=== PATIENT | female | born 1985 | race Caucasian/White ===

== ENCOUNTER 2023-07-14 14:27 | Emergency (ER) | payer OTHER, SELFPAY ==
--- NOTE | ~2023-07-14 | XR_ITS ---
EXAMINATION: XR chest 2V DATE: 07/14/2023 17:16 INDICATION: Cough. Upper respiratory tract infection. TECHNIQUE: PA and lateral views of the chest were obtained. COMPARISON: None FINDINGS: The lungs are clear with no focal airspace opacities, pulmonary edema, pleural effusion or pneumothor ax. The cardiomediastinal silhouette is normal. Visualized bones and soft tissues are unremarkable. IMPRESSION: 1. No acute cardiopulmonary disease. Reviewed, dictated and finalized at location A. IFIER
[2023-07-14 14:36] VITALS: BP 123/79; PULSE 89; RESP 18; TEMP 36.6; O2SAT 97
[2023-07-14 15:34] LABS: Eosinophils Absolute Auto 0.1 K/mm3 (0-0.3); Eosinophils Percent Auto 1.6 % (0-4.4); Hematocrit 41.1 % (37.0-47.0); Hemoglobin 13.8 g/dL (12.0-15.0); Immature Granulocyte Absolute 0.01 K/mm3 (0.00-0.031); Immature Granulocyte Percent A 0.1 % (0-0.5); Lymphocytes Absolute Auto 3.01 K/mm3 (0.9-3.2); Lymphocytes Percent Auto 39.6 % (18.3-44.2); Mean Corpuscular HGB Conc 33.6 g/dl (32-36); Mean Corpuscular Hemoglobin 30.7 pg (26-34); Mean Corpuscular Volume 91.5 fl (80-100); Mean Platelet Volume 10.4 fl (7.4-10.4); Monocytes Absolute Auto 0.8 K/mm3 (0.1-0.6); Neutrophils Absolute Auto 3.7 K/mm3 (1.3-6.7); Neutrophils Percent Auto 48.7 % (45.5-73.1); Platelet Count Result 203 k/mm3 (150-375); Red Blood Count 4.49 M/mm3 (4.2-5.4); Red Cell Distribution Width 12.6 % (11.5-14.5); White Blood Count 7.6 K/mm3 (4.5-10.0)
[2023-07-14 15:36] LABS: Appearance Urine Clear (Clear); Bilirubin Urine Negative (Negative); Blood Urine Negative (Negative); Color Urine Yellow (Yellow); Glucose Urine UA Negative (Negative); Ketones Urine Negative (Negative); Leukocyte Esterase Ur Negative LEU/UL (Negative); Nitrate Urine Negative (Negative); Protein Urine Negative (Negative); Specific Grav Ur 1.025 (1.001-1.035); Urobilinogen Urine 0.2 mg/dL (<2.0); pH Urine 6.5 (5.0-9.0)
[2023-07-14 15:41] LABS: Add Urine Microscopic? NO
[2023-07-14 15:43] LABS: Alanine Aminotransferase 20 U/L (6-35); Albumin Level 4.1 g/dL (3.5-5.1); Alkaline Phosphatase 59 U/L (38-126); Anion Gap 6 mmol/L (8-16); Aspartate Amino Transferase 27 U/L (14-36); Bilirubin,Total 0.6 mg/dL (0.2-1.3); Blood Urea Nitrogen 11 mg/dL (7-17); Calcium 9.2 mg/dL (8.4-10.2); Carbon Dioxide 27 mmol/L (22-30); Chloride 105 mmol/L (98-107); Estimated CRCL calculation 71 ml/min; Estimated Glomerular Filt Rate > 60; Glucose 89 mg/dL (65-110); Lipase 121 U/L (23-300); Potassium 3.9 mmol/L (3.4-5.0); Sodium 138 mmol/L (137-145)
[2023-07-14 16:05] LABS: Influenza A QL RT-PCR Negative (Negative); Influenza B QL RT-PCR Negative (Negative); RSV RNA, RT-PCR Negative (Negative); SARS-CoV-2 RNA PCR Negative (Negative)
--- NOTE | 2023-07-14 16:40 | ED.NAVMDI ---
HPI - Nausea/Vomiting/Diarrhea General Chief complaint: Nausea/Vomiting/Diarrhea Stated complaint: n/v/d Time Seen by Provider: 07/14/23 15:29 History of Present Illness HPI Narrative: 37-year-old female reports to the emergency department for symptoms of a viral syndrome x2 days. 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 She is reporting nausea, vomiting, diarrhea, diffuse abdominal discomfort, dry cough and headache. Reports a fever of 101 at the onset of symptoms which is since resolved. Denies chest pain or shortness of breath, dysuria or hematuria, vision changes or focal numbness or weakness. Review of Systems Review of Systems: CONSTITUTIONAL: Denies fever, chills, or sweats. EYES: Denies visual changes, redness, or discharge. ENT: See HPI CARDIOVASCULAR: Denies chest pain, palpitations, or edema. RESPIRATORY: See HPI GASTROINTESTINAL: See HPI GENITOURINARY: Denies dysuria or hematuria. SKIN: Denies rash or itching. MUSCULOSKELETAL: Denies back pain, joint pain, or myalgia. NEUROLOGIC: Denies headache, numbness, or weakness. PSYCHIATRIC: Denies anxiety or depression. Exam Narrative: GENERAL: Well-appearing, well-nourished, and in no acute distress. HEAD: Normocephalic, atraumatic. EYES: PERRLA and EOMI. ENT: Nares clear, no rhinorrhea or epistaxis. Mucous membranes moist. NECK: Supple. CHEST: Clear to auscultation. No respiratory distress. HEART: Regular rate and rhythm. No murmur heard. Normal peripheral pulses. ABDOMEN: Soft, nontender, nondistended, normal active bowel sounds. No guarding, rebound or rigidity. No CVA tenderness. EXTREMITIES: Normal range of motion. No edema. SKIN: Warm, dry, no rash. NEURO: No focal deficits. Alert and oriented x3 Course Vital Signs Vital signs: Vital Signs Temperature 97.9 F 07/14/23 14:36 Pulse Rate 89 07/14/23 14:36 Respiratory Rate 18 07/14/23 14:36 Blood Pressure 123/79 07/14/23 14:36 Pulse Oximetry 97 07/14/23 14:36 Temperature 97.9 F 07/14/23 14:36 Pulse Rate 89 07/14/23 14:36 Respiratory Rate 18 07/14/23 14:36 Blood Pressure 123/79 07/14/23 14:36 Pulse Oximetry 97 07/14/23 14:36 MDM - Nausea/Vomiting/Diarrhea MDM Narrative Medical decision making narrative: 37-year-old female reports for evaluation for nausea, vomiting, diarrhea, abdominal discomfort, headache and cough x2 days. See HPI for further history. Triage vitals are stable and she is afebrile. She is nontoxic on exam. CBC is without leukocytosis or bandemia. Chemistries are unremarkable. Lipase normal. UA unremarkable. COVID, flu RSV are negative. negative. Chest x-ray shows no acute cardiopulmonary disease. Labs and imaging discussed with the patient. Shared decision making regarding obtaining a abdomen pelvis CT. Patient declined states she like to treat conservatively which I agree given abdomen is soft and nontender, symptoms consistent with viral syndrome. Patient received a headache cocktail with resolution of headache and improvement in symptoms. Will discharge her home with Zofran, encourage increased fluid intake and close follow-up with her PCP. Strict ED return precautions discussed. She is agreeable with the plan and verbalized understanding. Discharged in stable condition. Lab Data 07/14/23 15:16 07/14/23 15:16 Labs: Lab Results 07/14/23 Range/Units 15:16 WBC 7.6 (4.5-10.0) K/mm3 RBC 4.49 (4.2-5.4) M/mm3 Hgb 13.8 (12.0-15.0) g/dL Hct 41.1 (37.0-47.0) % MCV 91.5 (80-100) fl MCH 30.7 (26-34) pg MCHC 33.6 (32-36) g/dl RDW 12.6 (11.5-14.5) % Plt Count 203 (150-375) k/mm3 MPV 10.4 (7.4-10.4) fl Immature Gran % (Auto) 0.1 (0-0.5) % Neut % (Auto) 48.7 (45.5-73.1) % Lymph % (Auto) 39.6 (18.3-44.2) % [place] % (Auto) 10.0 H (2.6-8.5) % Eos % (Auto) 1.6 (0-4.4) % Baso % (Auto) 0.0
[2023-07-14] MEDS: diphenhydrAMINE HCl INJ 50 MG/ML VIAL 25 MG IV PUSH (17:03)
[2023-07-14] MEDS: PROCHLORPERAZINE EDISYLATE 10 MG/2 ML VIAL IV PUSH (17:06)
[2023-07-14] MEDS: ACETAMINOPHEN 500 MG TABLET 1000 MG PO (17:06)
[2023-07-14 17:40] VITALS: BP 129/89; PULSE 70; RESP 16; O2SAT 98
== END 2023-07-14 17:40 | disposition home or self-care (01) ==
PROVIDERS: Emergency Medicine; Emergency Provider Physician Assistant; PCP Family Medicine
DX: B34.9 Viral infection, unspecified (principal); Z20.822 Contact with and (suspected) exposure to COVID-19
CPT/HCPCS: 36415; 71046; 80053; 81003; 81025; 83690; 85025; 87637; 96374; 96375; 99284; A9270; J0780; J1200

== ENCOUNTER 2024-02-10 12:32 | Emergency (ER) | payer OTHER, SELFPAY ==
--- NOTE | ~2024-02-10 | XR_ITS ---
EXAMINATION: XR chest 2V DATE: 02/10/2024 13:49 INDICATION: Cough TECHNIQUE: PA and lateral views of the chest were obtained. COMPARISON: Chest radiograph dated 07/14/2023 FINDINGS: The lungs remain clear with no focal airspace opacities, pulmonary edema, pleural effusion or pneumot horax. The cardiomediastinal silhouette is normal. Visualized bones and soft tissues are unremarkable . IMPRESSION: 1. No acute cardiopulmonary disease. Reviewed, dictated and finalized at location B.
[2024-02-10 12:35] VITALS: BP 130/81; PULSE 100; RESP 18; TEMP 36.7; O2SAT 99
[2024-02-10 13:01] VITALS: O2SAT 98
[2024-02-10 13:24] LABS: Strep Group A RT-PCR NOT DETECTED (Negative)
[2024-02-10 13:35] LABS: Influenza A QL RT-PCR Negative (Negative); Influenza B QL RT-PCR Negative (Negative); RSV RNA, RT-PCR Negative (Negative); SARS-CoV-2 RNA PCR Negative (Negative)
--- NOTE | 2024-02-10 14:08 | ED.URI ---
HPI - URI/Sore Throat General Chief Complaint: Upper Respiratory Infection Stated Complaint: sore throat, coughing Time Seen by Provider: 02/10/24 13:09 History of Present Illness HPI Narrative: 38-year-old female presenting with URI symptoms. States she has had nasal congestion, sinus pressure, cough, sore throat for the last several days. Her children and boyfriend have similar symptoms. She was unable to go to work yesterday. She thinks she has the flu. No further complaints. Related Data Home Medications Medication Instructions Recorded Confirmed alprazolam 1 mg tablet mg 07/14/23 escitalopram oxalate 10 mg tablet mg 07/14/23 sumatriptan succinate 100 mg tablet mg PO 07/14/23 07/14/23 Review of Systems Review of Systems: All systems reviewed & are unremarkable except as noted in HPI and below Exam Narrative: GENERAL: Nontoxic, no acute distress, pleasant cooperative HEAD: Normocephalic, atraumatic. EYES: PERRLA and EOMI. ENT: + nasal congestion. Mucous membranes moist. NECK: Supple. CHEST: Clear to auscultation. No respiratory distress. HEART: Regular rate and rhythm EXTREMITIES: Normal range of motion SKIN: Warm, dry, no rash. NEURO: Alert and oriented x3. PSYCH: Normal mood and affect. Course Vital Signs Vital signs: Vital Signs Temperature 98.0 F 02/10/24 12:35 Pulse Rate 100 02/10/24 12:35 Respiratory Rate 18 02/10/24 12:35 Blood Pressure 130/81 02/10/24 12:35 Pulse Oximetry 99 02/10/24 12:35 Oxygen Delivery Room Air 02/10/24 12:35 Temperature 98.3 F 02/10/24 14:16 Pulse Rate 95 02/10/24 14:16 Respiratory Rate 18 02/10/24 14:16 Blood Pressure 120/85 02/10/24 14:16 Pulse Oximetry 98 02/10/24 14:16 Oxygen Delivery Room Air 02/10/24 13:01 MDM - URI/Sore Throat MDM Narrative Medical decision making narrative: 38-year-old female presenting with URI symptoms. Vitals within normal limits. Exam remarkable for the above. Patient is negative for influenza, RSV, COVID, strep. Chest x-ray without acute abnormalities. She is safe for outpatient management. Discussed appropriate supportive care. Discharged in stable condition. Differential Diagnosis Differential diagnosis: Likely upper respiratory infection, viral infection and influenza Medical Records Attestation: I reviewed the patient's medical records. Lab Data Attestation: I reviewed the patient's lab results. Labs: Lab Results 02/10/24 Range/Units 12:50 Influenza A (RT-PCR) Negative (Negative) Influenza B (RT-PCR) Negative (Negative) RSV (RT-PCR) Negative (Negative) SARS-CoV-2 RNA (RT-PCR) Negative (Negative) Group A Strep (PCR) Not detected (Negative) Imaging Data Radiologist's impression: ITS Impressions Chest X-Ray 02/10/24 13:58 IMPRESSION: 1. No acute cardiopulmonary disease. Critical Care Time Critical Care Time Critical Care Time: No Discharge Plan Discharge Clinical Impression: Upper respiratory infection Patient Disposition: Home, Self-Care Condition: Stable Instructions: Antibiotic Form, Upper Respiratory Infection (ED) Additional Instructions: If your symptoms worsen or other concerning symptoms arise, please return to the ER. Prescriptions: No Action ondansetron 4 mg tablet,disintegrating 4 mg PO Q8H Qty: 14 0RF alprazolam 1 mg tablet sumatriptan succinate 100 mg tablet PO escitalopram oxalate 10 mg tablet Follow-up/Referrals: Juarez,Clotilde Babcock MD [Primary Care Provider] - Stand Alone Forms: Work/School Release IP
[2024-02-10 14:16] VITALS: BP 120/85; PULSE 95; RESP 18; TEMP 36.8; O2SAT 98
== END 2024-02-10 14:17 | disposition home or self-care (01) ==
PROVIDERS: Emergency Medicine; Emergency Provider Emergency Medicine; PCP Family Medicine
DX: J06.9 Acute upper respiratory infection, unspecified (principal); Z20.822 Contact with and (suspected) exposure to COVID-19
CPT/HCPCS: 71046; 87637; 87651; 99283

== ENCOUNTER 2024-02-15 16:48 | Emergency (ER) | payer OTHER, SELFPAY ==
[2024-02-15] VITALS (23 sets, daily range): BP systolic 106–126; BP diastolic 72–85; PULSE 83–99; RESP 15–24; TEMP 36.7; O2SAT 96–100
--- NOTE | ~2024-02-15 | XR_ITS ---
EXAMINATION: XR chest 2V Exam Date/Time: 02/15/2024 17:50 CDT HISTORY: sob and cough Comparison: 02/10/2024. RESULT: Lines, tubes, and devices: None. Lungs and pleura: Clear. Cardiomediastinal silhouette: Stable. Other: No acute osseous or upper abdominal finding. IMPRESSION: No acute cardiopulmonary process. Reviewed, dictated and finalized at location K.
--- NOTE | 2024-02-15 17:22 | ECG_ITS ---
Test Date: 2024-02-15 17:45:31 Measurements Intervals [place] Rate: 82 P: 52 IN: 119 QRS: 79 QRSD: 88 T: 73 QT: 367 QTc: 431 Interpretive Statements SINUS RHYTHM WITH SHORT IN INTERVAL NORMAL ECG No previous ECG available for comparison Electronically Signed On 02-15-2024 20:24:13 CDT by David Salas D.O.
[2024-02-15 17:48] LABS: Basophils Percent Auto 0.1 % (0.2-1.2); Eosinophils Absolute Auto 0.1 K/mm3 (0-0.3); Eosinophils Percent Auto 1.5 % (0-4.4); Hematocrit 39.3 % (37.0-47.0); Hemoglobin 13.7 g/dL (12.0-15.0); Immature Granulocyte Absolute 0.02 K/mm3 (0.00-0.031); Immature Granulocyte Percent A 0.2 % (0-0.5); Lymphocytes Absolute Auto 3.88 K/mm3 (0.9-3.2); Lymphocytes Percent Auto 43.8 % (18.3-44.2); Mean Corpuscular HGB Conc 34.9 g/dl (32-36); Mean Corpuscular Hemoglobin 31.9 pg (26-34); Mean Corpuscular Volume 91.4 fl (80-100); Mean Platelet Volume 9.6 fl (7.4-10.4); Monocytes Absolute Auto 0.9 K/mm3 (0.1-0.6); Monocytes Percent Auto 10.5 % (2.6-8.5); Neutrophils Absolute Auto 3.9 K/mm3 (1.3-6.7); Neutrophils Percent Auto 43.9 % (45.5-73.1); Platelet Count Result 251 k/mm3 (150-375); Red Cell Distribution Width 12.6 % (11.5-14.5); White Blood Count 8.9 K/mm3 (4.5-10.0)
[2024-02-15 18:00] LABS: Alanine Aminotransferase 20 U/L (6-35); Albumin Level 4.1 g/dL (3.5-5.1); Alkaline Phosphatase 61 U/L (38-126); Anion Gap 7 mmol/L (4-12); Aspartate Amino Transferase 25 U/L (14-36); Bilirubin,Total 0.3 mg/dL (0.2-1.3); Blood Urea Nitrogen 9 mg/dL (7-17); Calcium 8.9 mg/dL (8.4-10.2); Carbon Dioxide 26 mmol/L (22-30); Chloride 104 mmol/L (98-107); Estimated CRCL calculation 103 ml/min; Estimated Glomerular Filt Rate > 60; Glucose 88 mg/dL (65-110); Sodium 137 mmol/L (137-145)
[2024-02-15 18:01] LABS: Partial Thromboplastin Time 26.8 Seconds (22.3-36.8); Prothrombin Time 13.9 Seconds (11.1-14.7)
--- NOTE | 2024-02-15 18:07 | ED.SOB ---
HPI - SOB/Dyspnea General Chief Complaint: Shortness of Breath/Dyspnea Stated Complaint: SOB, cough, vomiting, subjective fever Time Seen by Provider: 02/15/24 17:22 Source: patient Mode of arrival: ambulatory Limitations: no limitations History of Present Illness HPI Narrative: This is a 38-year-old female that presents to the emergency department for cold symptoms. Present over the last week. Reports she has now started to have shortness of breath and wheezing. She has been taking agct-pbu-lueqomd medications with little relief. Denies fevers. Related Data Home Medications Medication Instructions Recorded Confirmed alprazolam 1 mg tablet mg 07/14/23 escitalopram oxalate 10 mg tablet mg 07/14/23 sumatriptan succinate 100 mg tablet mg PO 07/14/23 07/14/23 Allergies Allergy/AdvReac Type Severity Reaction Status Date / Time iohexol Allergy Swelling Verified 02/15/24 18:46 [From contrast - CT, X-RAY] of Lip/Tongue/Throat Sulfa (Sulfonamide Allergy Swelling Verified 02/15/24 17:20 Antibiotics) of Lip/Tongue/Throat vancomycin Allergy Swelling Verified 02/15/24 17:20 of Lip/Tongue/Throat Review of Systems Review of Systems: CONSTITUTIONAL: Denies fever ENT: Reports rhinorrhea, congestion, sore throat RESPIRATORY: Reports cough and dyspnea. All systems reviewed & are unremarkable except as noted in HPI and below PMFSH Past Medical History Medical History (Updated 02/15/24 @ 20:44 by Tresa Jefferson PA-C) History of anxiety Social History Social History (Updated 02/15/24 @ 18:20 by Tresa Jefferson PA-C) Smoking status: Current every day smoker Exam Narrative: GENERAL: Well-appearing, well-nourished, and in no acute distress. HEAD: Normocephalic, atraumatic. EYES: EOMI. ENT: Nares clear, no rhinorrhea or epistaxis. Mucous membranes moist. Oropharynx without tonsillar hypertrophy exudate or other lesions. NECK: Supple. No adenopathy or masses. CHEST: No respiratory distress. Lung sounds are coarse with diffuse wheezing. No rales or rhonchi HEART: Regular rate and rhythm. No murmur heard. Normal peripheral pulses. EXTREMITIES: Normal range of motion. No edema. SKIN: Warm, dry, no rash. NEURO: No focal deficits. Alert and oriented x3. PSYCH: Normal mood and affect Course Course Emergency Course: Patient with improved aeration after nebulizer treatments. Reports she is ready for discharge Vital Signs Vital signs: Vital Signs Temperature 98.1 F 02/15/24 16:57 Pulse Rate 90 02/15/24 16:57 Respiratory Rate 20 02/15/24 16:57 Blood Pressure 125/81 02/15/24 16:57 Pulse Oximetry 96 02/15/24 16:57 Oxygen Delivery Room Air 02/15/24 16:57 Temperature 98.1 F 02/15/24 16:57 Pulse Rate 96 02/15/24 20:13 Respiratory Rate 18 02/15/24 20:13 Blood Pressure 116/80 02/15/24 19:31 Pulse Oximetry 97 02/15/24 19:45 Oxygen Delivery Room Air 02/15/24 16:57 MDM - SOB/Dyspnea MDM Narrative Medical decision making narrative: patient presents to the emergency department for cold symptoms present over the last week. She is afebrile and nontoxic appearing. Her vitals are stable. Oxygen saturation is normal on room air. She was coarse with diffuse wheezing upon arrival. Cbc without leukocytosis. Metabolic panel without concerning findings. Influenza, RSV and COVID screens are negative. Chest x-ray without acute cardiopulmonary abnormality. Patient with improved aeration after nebulizer treatments. Reports she is ready for discharge. Instructed to follow up with primary provider. She was given warnings to return to the ER Differential Diagnosis Differential diagnosis: Likely acute exacerbation of chronic obstructive airways disease, community acquired pneumonia and other (acute bronchitis) Lab Data Attestation: I reviewed the patient's lab results. 02/15/24 17:41 02/15/24 17:41 Labs: Lab Resu
[2024-02-15] MEDS: IPRATROPIUM 0.5 MG/ALBUTEROL SULFATE 2.5 MG AMPUL.NEB 3 ML INHALATION (18:20)
[2024-02-15 18:24] LABS: Influenza A QL RT-PCR Negative (Negative); Influenza B QL RT-PCR Negative (Negative); RSV RNA, RT-PCR Negative (Negative); SARS-CoV-2 RNA PCR Negative (Negative)
[2024-02-15] MEDS: methylPREDNISolone SOD SUCC 125 MG VIAL IV PUSH (18:28)
[2024-02-15] MEDS: IPRATROPIUM BR 0.02% INH SOLN 0.5 MG/2.5 ML VIAL INHALATION (20:06)
[2024-02-15] MEDS: LEVALBUTEROL NEB 1.25 MG/3 ML INHALATION (20:06)
== END 2024-02-15 21:18 | disposition home or self-care (01) ==
PROVIDERS: Emergency Provider Physician Assistant; PCP Family Medicine
DX: J20.9 Acute bronchitis, unspecified (principal); Z20.822 Contact with and (suspected) exposure to COVID-19; F41.9 Anxiety disorder, unspecified; F17.200 Nicotine dependence, unspecified, uncomplicated
CPT/HCPCS: 36415; 71046; 80053; 85025; 85610; 85730; 87637; 93005; 94640; 96374; 99284; J2919

== ENCOUNTER 2024-07-16 20:30 | Emergency (ER) | payer OTHER, SELFPAY ==
--- OUTSIDE RECORDS SUMMARY | 2024-07-16 20:32 | XMS_ITS | Patient Health Summary ---
Author Organization [facility] Address [address] [place] [address] Care Team Providers Care Helicopter Specialist Name Role Phone Vitaliy Cowan MD Primary Care Provider [phone] Note from [facility],non-owned Affiliates and Associated Physician Practices is amultiple site organization consisting of ambulatory clinics and hospital sitesin [place], [place], [place] and [place]. This disclosure is being madepursuant to the Care Everywhere program and may not contain all information available regarding this patient. Last updated 18.[facility] Social History Tobacco Use Types Packs/Day Years Used Date Smoking Tobacco: Never Assessed Sex and Gender Information Value Date Recorded Sex Assigned at Not on file Gender Identity Not on file Sexual Orientation Not on file Care Teams Helicopter Specialist Relationship Specialty Start Date End Date Vitaliy Cowan MD [address] [address] PCP - General 11/22/20
--- OUTSIDE RECORDS SUMMARY | 2024-07-16 20:32 | XMS_ITS | Referral Summary ---
Author Organization [facility] Address [address] [place] [address] Care Team Providers Care Tower Erector Name Role Phone Clotilde Juarez MD Primary Care Provider Allergies Active Allergy Reactions Criticality Noted Date Comments Iodinated Contrast Media Other (See comments),Chest tightness Medium 09/27/2022 Patient states she had reaction last time she received contrast. Lips went numb and chest was tight Levofloxacin Other (See comments) Low 03/03/2019 Joints tighten up Naproxen Stomach upset Low 09/27/2022 Sulfa (Sulfonamide Antibiotics) Anaphylaxis High 03/03/2019 Sulfanilamide Ketorolac Unknown 07/25/2018 Tramadol Unknown 07/25/2018 Acetaminophen-Codeine Vomiting Low 07/25/2018 Vancomycin Unknown 07/25/2018 Medications HYDROcodone-acetam inophen (NORCO) 5-325 mg per tabletIndications: Pain Take 1 tablet by mouth every 6 (six) hours as needed for pain 10 tablet 07/25/19 Active Additional Information Patient not taking.Reported on 11/24/2021 naproxen (NAPROSYN) 500 mg tabletIndications: Left shoulder pain, unspecified chronicity Take 1 tablet (500 mg total) by mouth 2 (two) times a day with meals 60 tablet 1 07/30/19 Active Additional Information Patient not taking.Reported on 11/24/2021 guaiFENesin (ROBITUSSIN) syrup 100 mg/5 mL Take 5-10 mL (100-200 mg total) by mouth every 4 (four) hours as needed for cough 60 mL 06/25/19 23 Active promethazine-DM (PROMETHAZINE-DM) 1.25-3 mg/mL syrup Take 5 mL by mouth 4 (four) times a day as needed for cough 118 mL 07/31/19 23 Active benzonatate (TESSALON) 100 mg capsuleIndications :Cough Take 1 capsule (100 mg total) by mouth every 8 (eight) hours 21 capsule 01/31/20 23 Active ondansetron ODT (ZOFRAN-ODT) 4 mg disintegrating tablet Take 1 tablet (4 mg total) by mouth every 8 (eight) hours as needed for nausea or vomiting 20 tablet 01/31/20 23 Active albuterol HFA (PROVENTIL HFA,VENTOLIN HFA,PROAIR HFA) 90 mcg/actuation inhaler Inhale 2 puffs every 4 (four) hours as needed for wheezing 1 each 02/07/20 23 Active Active Problems Problem Noted Date Diagnosed Date Injury of left shoulder 11/24/2021 Left shoulder pain 07/29/2021 Social History Tobacco Use Types Packs/Day Years Used Date Smoking Tobacco: Some Days Smokeless Tobacco: Never Personal Safety Answer Date Recorded Have you ever been in or are you currently in a harmful physical or emotional relationship or is someone making you feel afraid or unsafe? 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 Not on file Not on file Last Filed Vital Signs Vital Sign Reading Time Taken Comments Blood Pressure 115/72 02/06/2023 11:55 PM CDT Pulse 115 02/06/2023 11:55 PM CDT Temperature 36.7 C (98.1 F) 02/06/2023 7:03 PM CDT Respiratory Rate 19 02/06/2023 11:5 5 PM CDT Oxygen Saturation 100% 02/06/2023 11: 55 PM CDT Inhaled Oxygen Concentration - - Weight 63.4 kg (139 lb 12.4 oz) 02/06/2023 7:03 PM CDT Height 162.6 cm (5' 4 ) 02/06/2023 7:03 PM CDT Body Mass Index 23.99 02/06/2023 7:03 PM CDT Plan of Treatment Not on file Procedures Procedure Name Priority Date/Time Associated Diagnosis Comments DIAGNOSTIC MAMMOGRAM BILATERAL W NOLAN Schedule Routine, Read Routine (OP Routine) 01/05/2022 2:00 PM CDT Mastodynia from Last 3 Months or Most Recently Relevant to Health Maintenance Results * Diagnostic Mammogram Bilateral W Nolan (01/05/2022 2:00 PM CDT) Anatomical Region Laterality Modality Breast Bilateral Mammography 01/05/2022 2:22 PM CDT Narrative 01/05/2022 2:25 PM CDT EXAM DESCRIPTION: US BREAST RIGHT LIMITED; DIAGNOSTIC MAMMOGRAM BILATERAL W NOLAN REASON FOR STUDY: 36-year-old woman comes in today for evaluation of focal pain in the right breast, and routine screening of the left breast. COMPARISON: None available. This is patient's baseline mammogram. FINDINGS: CC and MLO digital breast tomosynthesis of both breasts with C view was performed. Targeted sonographic examination of the right breast was also performed with real-time grayscale images and color Doppler. FINDINGS: MAMMOGRAPHIC FINDINGS: DENSITY: There are scattered areas of fibroglandular density. BREASTS: There are no suspicious findings in either breast on mammogram. Specifically, no suspicious findings are seen in the vicinity of the marker placed at the level of reported focal pain, located at the 11 o'clock position middle depth. ULTRASOUND FINDINGS: Targeted sonographic examination of the right breast is performed in the area of reported pain, corresponding to the 11 o'clock position 5 cm from the nipple. At this level only benign fibroglandular tissue is seen without suspicious solid or cystic masses. IMPRESSION: 1. No suspicious findings identified on mammogram or sonogram to account for patient's reported focal pain at the 11 o'clock position of the right breast. Continued physical examination is recommended. Any further management should be based on clinical assessment. 2. No suspicious findings identified in either breast on mammogram. Annual bilateral screening mammography recommended in 12 months. BIRADS: 1 - Negative I discussed the findings and recommendations with the patient at the time of the examination. THIS IS AN ELECTRONICALLY VERIFIED FINAL REPORT 01/05/2022 2:25 PM - Electronically signed by Madi Diop M.D. RL: ROMEL Report ID: [id number] Reading Location: [facility] Clotilde Juarez MD IMG MAMMO PROCEDURES Final Resul t from Last 3 Months or Most Recently Relevant to Health Maintenance Additional Health Concerns Infection Onset Date Last Indicated MDR gram neg/ESBL 09/27/2022 09/27/2022 Insurance [facility] Care Teams Tower Erector Relationship Specialty Start Date End Date Clotilde Juarez MD PCP - General Plant Operator 08/26/21
--- OUTSIDE RECORDS SUMMARY | 2024-07-16 20:32 | XMS_ITS | Clinical Summary ---
Author Organization [facility] Address [address] [place] [address] Care Team Providers Care Dietary Services Manager Name Role Phone Clotilde Juarez MD Primary Care Provider [phone] Allergies Active Allergy Reactions Criticality Noted Date Comments Iodine Unknown 03/26/2023 Ketorolac Nausea Only 07/25/2018 Levofloxacin Other (see comment) 03/03/2019 Joints tighten up Shellfish-Derived Products Unknown 03/26/2023 Sulfa Antibiotics Anaphylaxis High 03/03/2019 Ketorolac Tromethamine Unknown 03/26/2023 Tramadol Nausea and Vomiting 03/03/2019 Severely sick Acetaminophen-Codeine Vomiting 04/12/2020 Sever abdominal pain-- Can take tylenol, norco, vicodin but not tylenol # Vancomycin Hives,Itching,Swelli n g 03/03/2019 Medications albuterol sulfate HFA 108 (90 Base) MCG/ACT inhaler Inhale 2 puffs into the lungs every 4 (four) hours as needed. 12/09/2020 Active ALPRAZolam 0.5 MG tablet Take 0.5 mg by mouth 3 (three) times daily. 12/09/2020 Active SUMAtriptan 100 MG tablet TAKE 1 TABLET BY MOUTH AT START OF MIGRAINE. CAN REPEAT ONCE IN 2 HOURS. 12/07/2020 Active Active Problems Problem Noted Date Diagnosed Date Palpitations 03/29/2023 Tachycardia 03/29/2023 PVC (premature ventricular contraction) 03/26/20 23 Overview (03/26/2023): pt thinks- was dx 1-2 years ago Family History Medical History Relation Comments No Known Problems Father COPD Mother Diabetes Mother Heart Disease Mother Hypertension Mother [place] Mother Stroke Mother Depression Sister Lupus Sister Seizures Sister Relation Status Comments Father Alive Mother Alive Sister Social History Tobacco Use Types Packs/Day Years Used Date Smoking Tobacco: Every Day Cigarettes 0.2 19 Smokeless Tobacco: Never Comments:5 cigs a day Alcohol Use Standard Drinks/Week Comments Not Currently 0 (1 standard drink = 0.6 oz pur e alcohol) AUDIT-C Answer Date Recorded Q1: How often do you have a drink containing alc ohol? Never 04/12/2020 Average Number of Drinks Not on file 020 Frequency of Binge Drinking Not on file 03/31 Comments No Sex and Gender Information Value Date Recorded Sex Assigned at Not on file Legal Sex Female 8:18 PM CDT Gender Identity Not on file Sexual Orientation Not on file Last Filed Vital Signs Vital Sign Reading Time Taken Comments Blood Pressure 120/80 03/29/2023 2:10 PM CDT Pulse 91 03/29/2023 2:10 PM CDT Temperature 36.6 C (97.8 F) 03/13/2021 10:18 AM CDT Respiratory Rate 18 03/13/2021 10:18 AM CDT Oxygen Saturation 99% 03/29/2023 2:10 PM CDT Inhaled Oxygen Concentration - - Weight 64.4 kg (142 lb) 03/29/2023 2:10 PM CDT Height 162.6 cm (5' 4 ) 03/29/2023 2:10 PM CDT Body Mass Index 24.37 03/29/2023 2:10 PM CDT Plan of Treatment Health Maintenance Due Date Last Done Comments Annual Physical 11/04/1986 Pneumococcal Vaccine: Pediatrics (0 to 5 Years) and At-Risk Patients (6 to 64 Years) (1 of 2 - PCV) 11/04/1989 Hepatitis C 11/04/2001 DTaP, Tdap and Td Vaccines ( 1 - Tdap) 11/04/2002 Hepatitis B Vaccines (1 of 3 - 19+ 3-dose series) 11/04/2002 Mammogram Screening 2023 COVID-19 Vaccine (3 - 2023-2 5 season) 2024 06/26/2020, 06/05/2020 Influenza Adult (#1) 2024 HPV Vaccines Aged Out No longer eligi ble based on patient's age to complete this topic Meningococcal B Vaccine Aged Out No l onger eligible based on patient's age to complete this topic Meningococcal Vaccine Aged Out No keri radha eligible based on patient's age to complete this topic RSV Immunizations Under 20 Months Aged Out No longer eligible b ased on patient's age to complete this topic Insurance [employer] Care Teams Dietary Services Manager Relationship Specialty Start Date End Date Clotilde Juarez MD [address] [place] [address] PCP - General FAMILY PRACTICE 03/08/23
--- OUTSIDE RECORDS SUMMARY | 2024-07-16 20:32 | XMS_ITS | Clinical Summary ---
Author Organization [facility] Address [address] [place] [address] Care Team Providers Care Senior Asic Engineer Name Role Phone Vitaliy Cowan MD Primary Care Provider [phone] Source Comments [facility],non-owned Affiliates and Associated Physician Practices is amultiple site organization consisting of ambulatory clinics and hospital sitesin [place], [place], [place] and [place]. This disclosure is being madepursuant to the Care Everywhere program and may not contain all information available regarding this patient. Last updated 18.[facility] Social History Tobacco Use Types Packs/Day Years Used Date Smoking Tobacco: Never Assessed Sex and Gender Information Value Date Recorded Sex Assigned at Not on file Gender Identity Not on file Sexual Orientation Not on file Plan of Treatment Health Maintenance Due Date Last Done Comments LIPID TESTING 1983 MAMMOGRAM 1983 PAP SMEAR 1983 HIV SCREENING 11/04/1998 HEPATITIS C SCREENING 10/31/2001 DTAP/TDAP/TD VACCINES (1 - Tdap) 11/04/2002 HEPATITIS B VACCINE (1 of 3 - 19+ 3-dose series) 11/04/2002 COVID-19 VACCINE ( - 2023-2 5 season) 2024 INFLUENZA VACCINE (#1) 2024 DEPRESSION SCREENING 05/31/2024 ZOSTER VACCINE (1 of 2) 11/04/2033 HIB VACCINE Aged Out No longer eligi ble based on patient's age to complete this topic HPV VACCINE Aged Out No longer eligi ble based on patient's age to complete this topic MENINGOCOCCAL (Group B) VACCINE Aged Out No longer eligible based on patient's age to complete this topic MENINGOCOCCAL VACCINE Aged Out No keri radha eligible based on patient's age to complete this topic PNEUMOCOCCAL VACCINE Aged Out No long er eligible based on patient's age to complete this topic Care Teams Senior Asic Engineer Relationship Specialty Start Date End Date Vitaliy Cowan MD [address] [place] [id number] PCP - General 11/22/20
--- OUTSIDE RECORDS SUMMARY | 2024-07-16 20:32 | XMS_ITS | Clinical Summary ---
Author Organization [facility] Address [address] [place] [address] Care Team Providers Care Grooming Salon Manager Name Role Phone Clotilde Juarez MD Primary Care Provider [phone] Allergies Active Allergy Reactions Criticality Noted Date [...] left shoulder 11/24/2021 Left shoulder pain 07/29/2021 Surgical History Surgery Date Site/Laterality Comments EAR SURGERY HYSTERECTOMY BLADDER SURGERY LYMPH NODE BIOPSY Medical History Medical History Date Comments Hx Other Medical deaf left ear Peptic ulcer Peptic ulcer dis ease Depression Depression Asthma Asthma Deafness in left ear Family History Medical History Relation Name Comments Arthritis Mother Deep vein thrombosis Mother Diabetes Mother Gout Mother Heart disease Mother Stroke Mother Breast cancer Mother's Sister 1 Breast cancer Mother's Sister 2 Diabetes Other 1 Family history of Diabetes mellitus; Cancer Other 2 Family history of Cancer; Heart disease Other 3 Family history of Heart disease; COPD Other 4 Family history of COPD; Hypertension Other 5 Family history of Hypertension; Relation Name Status Comments Mother Mother's Sister 1 Mother's Sister 2 Alive Other 1 Other 2 Other 3 Other 4 Other 5 Social History Tobacco Use Types Packs/Day Years [...] on file 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 Gender Identity Not on file Sexual Orientation Not on file 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 Not on file Not on file Not on file Obstetrics History Para Term AB IAB SAB Ectopic Multiple Livin g Live Births 4 3 3 Date Outcome GA Total Labor Labor/2nd/3rd Weight Sex Type Anes PTL Yamilex A1 A5 Name Clin Term Term Term Last Filed Vital Signs Vital Sign Reading [...] 02/06/2023 7:03 PM CDT Plan of Treatment Health Maintenance Due Date Last Done Comments Depression Screening 1983 Hepatitis C Screening 1983 Pneumococcal vaccine <65 (1 of 2 - PCV) 11/04/1989 Varicella Vaccines (1 of 2 - 13+ 2-dose series) 11/04/1996 Hepatitis B Screening 11/04/2001 Regular Well Visit/Exam 18-64 11/04/2001 Breast Cancer Screening-Mammogram 01/05/2023 01/05/2022 Covid-19 Vaccine (3 - 2023-2 5 season) 2024 06/26/2020, 06/05/2020 Influenza Vaccine (#1) 2024 , 03/14/2020 DTaP/Tdap/Td Vaccine (2 - Td or Tdap) 01/28/2031 01/28/2021 HPV Vaccines Aged Out No longer eligi ble based on patient's age to complete this topic Procedures Procedure Name Priority Date/Time Associated Diagnosis [...] Madi Diop M.D. 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
--- OUTSIDE RECORDS SUMMARY | 2024-07-16 20:32 | XMS_ITS | Referral Summary ---
Author Organization [facility] Address [address] [place] [address] Care Team Providers Care Clinical Staff Educator Name Role Phone Vitaliy Cowan MD Primary Care Provider [phone] Source Comments [facility],non-[facility] Affiliates and Associated Physician Practices is amultiple site organization consisting of ambulatory clinics and hospital sitesin [place], [place], [place] and [place]. This disclosure is being madepursuant to the Care Everywhere program and may not contain all information available regarding this patient. Last updated 18.[facility] Social History Tobacco Use Types Packs/Day Years Used Date Smoking Tobacco: Never Assessed Sex and Gender Information Value Date Recorded Sex Assigned at Not on file Gender Identity Not on file Sexual Orientation Not on file Plan of Treatment Not on file Care Teams Clinical Staff Educator Relationship Specialty Start Date End Date Vitaliy Cowan MD [address] [address] PCP - General 11/22/20
[2024-07-16 20:53] VITALS: BP 128/74; PULSE 116; RESP 20; TEMP 37.5; O2SAT 99
[2024-07-16 21:34] LABS: Influenza A QL RT-PCR Positive (Negative); Influenza B QL RT-PCR Negative (Negative); RSV RNA, RT-PCR Negative (Negative); SARS-CoV-2 RNA PCR Negative (Negative)
[2024-07-16 23:31] VITALS: BP 118/73; PULSE 108; RESP 18; O2SAT 98
[2024-07-17 00:46] VITALS: BP 114/76; PULSE 107; RESP 22; TEMP 37.3; O2SAT 100
--- NOTE | 2024-07-17 00:50 | PC.NURSE ---
Patient refused to get in gown and states I am freezing and I cannot . Nursing staff stated that if patient does not have a fever they can get her a blanket. Patient still refuses to get into gown.
--- NOTE | 2024-07-17 01:12 | ED_ITS ---
HPI - General Adult General Chief complaint: Upper Respiratory Infection Stated complaint: overal body pain, chills, fever, vomitting Time Seen by Provider: 07/17/24 00:58 History of Present Illness HPI narrative: This is a 38-year-old female presenting with flu-like symptoms. Symptoms include body aches fatigue fever and chills. She has been seen by primary care physician and was clinically diagnosed with the flu. However conditions have persisted. Patient is requesting a work note as she is supposed to be at work at 4:30 a.m. tomorrow. She does not want any workup performed would like to go home. Related Data Home Medications ?Medication ?Instructions ?Recorded ?Confirmed ?Last Taken ?Type alprazolam 1 mg tablet mg 07/14/23 Unknown History escitalopram oxalate 10 mg tablet mg 07/14/23 Unknown History sumatriptan succinate 100 mg tablet mg PO 07/14/23 07/14/23 Unknown History Allergies Allergy/AdvReac Type Severity Reaction Status Date / Time iohexol (From contrast - CT, Allergy Swelling Verified 07/16/24 20:56 X-RAY) of Lip/Tongue/Throat Sulfa (Sulfonamide Allergy Swelling Verified 07/16/24 20:56 Antibiotics) of Lip/Tongue/Throat vancomycin Allergy Swelling Verified 07/16/24 20:56 of Lip/Tongue/Throat tylenol 3 Allergy Unknown Other Uncoded 07/16/24 20:56 [facility] Past Medical History Medical History (Updated 07/17/24 @ 01:15 by Papo Iqbal MD) History of anxiety Social History Social History (Updated 02/15/24 @ 18:20 by Tresa Jefferson PA-C) Smoking status: Current every day smoker Exam Narrative: APPEARANCE: Uncomfortable appearing Head: atraumatic. EYES: EOMI, NOSE: Atraumatic NECK: Trachea midline RESPIRATORY: No increased rate of breathing scattered wheezing CARDIOVASCULAR: Mildly tachycardic ABDOMINAL: Non-distended soft nontender MUSCULOSKELETAl: No obvious deformities NEURO: Alert. Moving 4/4 extremities SKIN:: Warm, dry. Normal color PSYCHIATRIC: Normal affect Course Vital Signs Vital signs: Vital Signs Temperature 99.5 F 07/16/24 20:53 Pulse Rate 116 H 07/16/24 20:53 Respiratory Rate 20 07/16/24 20:53 Blood Pressure 128/74 07/16/24 20:53 Pulse Oximetry 99 07/16/24 20:53 Oxygen Delivery Room Air 07/16/24 20:53 Temperature 99.2 F 07/17/24 00:46 Pulse Rate 107 H 07/17/24 00:46 Respiratory Rate 22 H 07/17/24 00:46 Blood Pressure 114/76 07/17/24 00:46 Pulse Oximetry 100 07/17/24 00:46 Oxygen Delivery Room Air 07/16/24 20:53 Medical Decision Making MDM Narrative Medical decision making narrative: -Course: 38-year-old female presenting with flu-like symptoms. Scattered wheezing on exam. Mild tachycardia. Visually my plan was to get blood work and IV fluids with antipyretics. The patient has declined all intervention. She is would like to just take Motrin Tylenol at home. She needs a work note she is too sick to go to work tomorrow. These were provided. Additionally she has been prescribed inhaler she does have some mild wheezing on exam. Patient has been discharged with return precautions. -DDX includes but is not limited to: Influenza, COVID, pneumonia Vital Signs Vital Signs: Vital Signs Temperature 99.5 F 07/16/24 20:53 Pulse Rate 116 H 07/16/24 20:53 Respiratory Rate 20 07/16/24 20:53 Blood Pressure 128/74 07/16/24 20:53 Pulse Oximetry 99 07/16/24 20:53 Oxygen Delivery Room Air 07/16/24 20:53 Temperature 99.2 F 07/17/24 00:46 Pulse Rate 107 H 07/17/24 00:46 Respiratory Rate 22 H 07/17/24 00:46 Blood Pressure 114/76 07/17/24 00:46 Pulse Oximetry 100 07/17/24 00:46 Oxygen Delivery Room Air 07/16/24 20:53 Lab Data Labs: Lab Results 07/16/24 Range/Units 20:52 Influenza A (RT-PCR) Positive A (Negative) Influenza B (RT-PCR) Negative (Negative) RSV (RT-PCR) Negative (Negative) SARS-CoV-2 RNA (RT-PCR) Negative (Negative) Discharge Plan Discharge Clinical Impression: Influenza Patient Disposition: Home, Self-Care Condition: Stable Instructions: Antibiotic Form, Influenza (ED) Additional Instructions: Please take Motrin Tylenol for fevers and body aches. Use the inhaler for wheezing. Please return to the ED if you feel you are getting worse, develops chest pain shortness of breath. Patient Language: Bengali Prescriptions: New ibuprofen 800 mg tablet 800 mg PO TID PRN (Reason: pain) 7 Days Qty: 21 0RF acetaminophen 500 mg tablet 1,000 mg PO TID PRN (Reason: giles) 7 Days Qty: 42 0RF ondansetron 4 mg tablet,disintegrating 4 mg PO Q8H PRN (Reason: nausea and vomiting) Qty: 30 0RF albuterol sulfate [Ventolin HFA] 90 mcg/actuation HFA aerosol inhaler 2 puff inhalation QID PRN (Reason: shortness of breath or wheezing) Qty: 8.5 0RF No Action prednisone 20 mg tablet 40 mg PO DAILY 4 Days Qty: 8 0RF albuterol sulfate 90 mcg/actuation HFA aerosol inhaler 2 puff inhalation QID PRN (Reason: shortness of breath or wheezing) Qty: 8.5 0RF ondansetron 4 mg tablet,disintegrating 4 mg PO Q8H Qty: 14 0RF alprazolam 1 mg tablet sumatriptan succinate 100 mg tablet PO escitalopram oxalate 10 mg tablet Follow-up/Referrals: Larry,Clotilde Babcock MD [Primary Care Provider] - Stand Alone Forms: Work/School Release IP
--- OUTSIDE RECORDS SUMMARY | 2024-07-17 01:16 | XMS_ITS | Patient Health Summary ---
Author Organization [facility] Address [address] [place] [address] Care Team Providers Care Supervisor Garment Manufacturing Name Role Phone Vitaliy Cowan MD Primary Care Provider [phone] Note from [facility],non-owned Affiliates and Associated Physician Practices is amultiple site organization consisting of ambulatory clinics and hospital sitesin [place], [place], [place] and [place]. This disclosure is being madepursuant to the Care Everywhere program and may not contain all information available regarding this patient. Last updated 18.[facility] Social History Tobacco Use Types Packs/Day Years Used Date Smoking Tobacco: Never Assessed Sex and Gender Information Value Date Recorded Sex Assigned at Not on file Gender Identity Not on file Sexual Orientation Not on file Care Teams Supervisor Garment Manufacturing Relationship Specialty Start Date End Date Vitaliy Cowan MD [address] [phone] PCP - General 11/22/20
--- OUTSIDE RECORDS SUMMARY | 2024-07-17 01:16 | XMS_ITS | Clinical Summary ---
Author Organization [facility] Address [address] [place] [address] Care Team Providers Care Chief Investigator Name Role Phone Clotilde Juarez MD Primary Care Provider [phone] Allergies Active Allergy Reactions Criticality Noted Date [...] Diabetes Mother Heart Disease Mother Hypertension Mother [place] Mother Stroke Mother Depression Sister Lupus Sister [...] complete this topic Insurance [employer] Care Teams Chief Investigator Relationship Specialty Start Date End Date Clotilde Juarez MD [address] [place] [address] PCP - General FAMILY PRACTICE 03/08/23
--- OUTSIDE RECORDS SUMMARY | 2024-07-17 01:16 | XMS_ITS | Clinical Summary ---
Author Organization [facility] Address [address] [place] [address] Care Team Providers Care Fine Craft Artist Name Role Phone Vitaliy Cowan MD Primary Care Provider [phone] Source Comments [facility],non-owned Affiliates and Associated Physician Practices is amultiple site organization consisting of ambulatory clinics and hospital sitesin [place], [place], [place] and [place]. This disclosure is being madepursuant to the Care Everywhere program and may not contain all information available regarding this patient. Last updated 18.[facility] Social History Tobacco Use Types [...] age to complete this topic Care Teams Fine Craft Artist Relationship Specialty Start Date End Date Vitaliy Cowan MD [address] [place] [id number] PCP - General 11/22/20
--- OUTSIDE RECORDS SUMMARY | 2024-07-17 01:16 | XMS_ITS | Clinical Summary ---
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
--- OUTSIDE RECORDS SUMMARY | 2024-07-17 01:16 | XMS_ITS | Referral Summary ---
Author Organization [facility] Address [address] [place] [address] Care Team Providers Care Pharmacogeneticist Name Role Phone Vitaliy Cowan MD Primary Care Provider [phone] Source Comments [facility],non-[facility] Affiliates and Associated Physician Practices is amultiple site organization consisting of ambulatory clinics and hospital sitesin [place], [place], [place] and [place]. This disclosure is being madepursuant to the Care Everywhere program and may not contain all information available regarding this patient. Last updated 18.[facility] Social History Tobacco Use Types Packs/Day Years Used Date Smoking Tobacco: Never Assessed Sex and Gender Information Value Date Recorded Sex Assigned at Not on file Gender Identity Not on file Sexual Orientation Not on file Plan of Treatment Not on file Care Teams Pharmacogeneticist Relationship Specialty Start Date End Date Vitaliy Cowan MD [address] [address] PCP - General 11/22/20
--- OUTSIDE RECORDS SUMMARY | 2024-07-17 01:16 | XMS_ITS | Referral Summary ---
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
[2024-07-17] MEDS: IBUPROFEN 400 MG TABLET 800 MG PO (01:18)
[2024-07-17] MEDS: ACETAMINOPHEN 500 MG TABLET 1000 MG PO (01:18)
== END 2024-07-17 01:22 | disposition home or self-care (01) ==
LOC: ANHED 07-17 01:15
PROVIDERS: Physician Assistant; Emergency Provider Emergency Medicine; PCP Family Medicine
DX: J11.1 Influenza due to unidentified influenza virus with other respiratory manifestations (principal); Z20.822 Contact with and (suspected) exposure to COVID-19; F41.9 Anxiety disorder, unspecified; F17.200 Nicotine dependence, unspecified, uncomplicated; Z79.899 Other long term (current) drug therapy
CPT/HCPCS: 87637; 99283; A9270

== ENCOUNTER 2024-11-12 13:38 | Emergency (ER) | payer OTHER, SELFPAY ==
--- NOTE | ~2024-11-12 | XR_ITS ---
Clinical Indication: Cough PA and lateral views of the chest: Comparison: 02/15/2024 Findings: The lungs are clear, without evidence of focal consolidation or pleural effusion. Cardiome diastinal silhouette is within normal limits. Bones and soft tissues are unremarkable. Impression: Normal chest. Reviewed, dictated and finalized at location . Impression: Normal chest.
[2024-11-12 13:42] VITALS: BP 110/77; PULSE 118; RESP 24; TEMP 36.9; O2SAT 96
[2024-11-12 14:16] LABS: Strep Group A RT-PCR NOT DETECTED (Negative)
--- NOTE | 2024-11-12 14:29 | ED_ITS ---
HPI - URI/Sore Throat General Chief Complaint: Upper Respiratory Infection Stated Complaint: congestion, sore throat, body aches Time Seen by Provider: 11/12/24 13:46 History of Present Illness HPI Narrative: 39-year-old female presenting to the emergency department with viral syndrome s ymptoms including myalgias, cough, congestion, sore throat. She has sick contacts at home with very similar symptoms and also works at a long-term care facility with sick contacts. Has been trying some [id number] therapies without significant relief. Endorses a productive cough. No chest discomfort, vomiting, diarrhea, abdominal pain. Related Data Home Medications ?Medication ?Instructions ?Recorded ?Confirmed ?Last Taken ?Type alprazolam 1 mg tablet mg 07/14/23 Unknown History escitalopram oxalate 10 mg tablet mg 07/14/23 Unknown History sumatriptan succinate 100 mg tablet mg PO 07/14/23 07/14/23 Unknown History Allergies Allergy/AdvReac Type Severity Reaction Status Date / Time iohexol (From contrast - CT, Allergy Swelling Verified 11/12/24 13:48 X-RAY) of Lip/Tongue/Throat Sulfa (Sulfonamide Allergy Swelling Verified 11/12/24 13:48 Antibiotics) of Lip/Tongue/Throat vancomycin Allergy Swelling Verified 11/12/24 13:48 of Lip/Tongue/Throat tylenol 3 Allergy Unknown Other Uncoded 11/12/24 13:48 Review of Systems Review of Systems: As [facility] Past Medical History Medical History History of anxiety Social History Social History Smoking status: Current every day smoker Exam Narrative: GENERAL: Congested-sounding, mildly tachycardic but not any acute respiratory distress. HEAD: [Normocephalic, atraumatic.] EYES: [PERRLA and EOMI.] ENT: Post posterior oropharynx with some mild erythema but no exudates, postnasal drip noted, sinuses are congested NECK: Supple. CHEST: Clear breath sounds with good aeration and no respiratory distress besides mild tachypnea. No retractions or accessory muscle use. HEART: [Regular rate and rhythm]. No murmur heard. [Normal peripheral pulses.] ABDOMEN: [Soft, nondistended], [nontender], [No rigidity or guarding] EXTREMITIES: Normal range of motion. [No edema.] SKIN: Warm, dry, no rash. NEURO: [No focal deficits]. Alert and oriented [x3.] PSYCH: [Normal mood and affect.] Course Vital Signs Vital signs: Vital Signs Temperature 36.9 C 11/12/24 13:42 Pulse Rate 118 H 11/12/24 13:42 Respiratory Rate 24 H 11/12/24 13:42 Blood Pressure 110/77 11/12/24 13:42 Pulse Oximetry 96 11/12/24 13:42 Oxygen Delivery Room Air 11/12/24 13:42 Temperature 36.9 C 11/12/24 13:42 Pulse Rate 99 11/12/24 14:56 Respiratory Rate 18 11/12/24 14:56 Blood Pressure 118/82 11/12/24 14:56 Pulse Oximetry 100 11/12/24 14:56 Oxygen Delivery Room Air 11/12/24 13:42 MDM - URI/Sore Throat MDM Narrative Medical decision making narrative: 39-year-old female presenting with viral syndrome type symptoms including body aches, myalgias, cough, congestion, sore throat. Symptoms going on for 2 days with similar symptoms and multiple family members. She has been taking [id number] medications without relief. Patient is mildly tachycardic and tachypneic but afebrile with normal blood pressure not any acute respiratory or physical distress. She has clear breath sounds throughout, overall not ill- appearing but does sound congested with symptoms resembling viral illness. COVID flu and RSV swabs obtained as well as a strep swab and a chest x-ray. Patient offered intramuscular medications for symptom control but patient declined needles and like oral medications only. She was given Toradol and pseudoephedrine and will be re-evaluated. Chest x-ray independently reviewed and also interpreted by radiology with clear lungs, no evidence of consolidation or pneumothorax. Mediastinal silhouette is normal. Patient is a viral panel is negative for COVID flu and RSV. Negative for strep throat. Patient's symptoms consistent with acute viral syndrome from other likely virus and she is stable for outpatient follow-up with her primary care provider and prescription for pseudoephedrine, Toradol and Zofran for symptom control. Patient given return precautions and discharge. Medical Records Attestation: I reviewed the patient's medical records. Lab Data Attestation: I reviewed the patient's lab results. Labs: Lab Results 11/12/24 Range/Units 13:47 Influenza A (RT-PCR) Negative (Negative) Influenza B (RT-PCR) Negative (Negative) RSV (RT-PCR) Negative (Negative) SARS-CoV-2 RNA (RT-PCR) Negative (Negative) Group A Strep (PCR) Not detected (Negative) Imaging Data Attestation: I personally reviewed and interpreted this imaging study as follows: My impression: Impressions Chest X-Ray 11/12/24 14:04 Impression: Normal chest. Discharge Plan Discharge Clinical Impression: Acute viral syndrome, Upper respiratory infection Patient Disposition: Home Condition: Stable Instructions: Antibiotic Form, Viral Syndrome (ED) Additional Instructions: Your chest x-ray shows no consolidations or signs of any pneumonia or fluid and your viral panel is negative for COVID, flu, RSV and strep test is also negati ve. Your symptoms are very consistent with viral syndrome from other potential viruses which did not need antibiotics but do need time and rest for healing. We will prescribe several different medications to help control symptoms and any [id number]-lew-[id number] remedies that help with her symptoms are also acceptable. Follow-up with your primary care provider. Return with any new or worsening/emergent concerns. Patient Language: Spanish Prescriptions: New ketorolac 10 mg tablet 10 mg PO Q8H PRN (Reason: pain) 5 Days Qty: 20 0RF Rx Instructions: maximum total duration of 5 days from all oral, intranasal, or parenteral formulations ondansetron 4 mg tablet,disintegrating 4 mg PO Q8H PRN (Reason: nausea and vomiting) Qty: 10 0RF pseudoephedrine HCl [Nasal Decongestant (pseudoeph)] 30 mg tablet 30 mg PO Q4-6H PRN (Reason: nasal congestion) Qty: 20 0RF Rx Instructions: DNExceed 4 doses/24h No Action prednisone 20 mg tablet 40 mg PO DAILY 4 Days Qty: 8 0RF albuterol sulfate 90 mcg/actuation HFA aerosol inhaler 2 puff inhalation QID PRN (Reason: shortness of breath or wheezing) Qty: 8.5 0RF ondansetron 4 mg tablet,disintegrating 4 mg PO Q8H Qty: 14 0RF alprazolam 1 mg tablet sumatriptan succinate 100 mg tablet PO escitalopram oxalate 10 mg tablet ibuprofen 800 mg tablet 800 mg PO TID PRN (Reason: pain) 7 Days Qty: 21 0RF acetaminophen 500 mg tablet 1,000 mg PO TID PRN (Reason: giles) 7 Days Qty: 42 0RF ondansetron 4 mg tablet,disintegrating 4 mg PO Q8H PRN (Reason: nausea and vomiting) Qty: 30 0RF albuterol sulfate [Ventolin HFA] 90 mcg/actuation HFA aerosol inhaler 2 puff inhalation QID PRN (Reason: shortness of breath or wheezing) Qty: 8.5 0RF Follow-up/Referrals: Larry,Clotilde Babcock MD [Primary Care Provider] - Stand Alone Forms: Work/School Release IP Time of Disposition: 14:40
[2024-11-12 14:30] LABS: Influenza A QL RT-PCR Negative (Negative); Influenza B QL RT-PCR Negative (Negative); RSV RNA, RT-PCR Negative (Negative); SARS-CoV-2 RNA PCR Negative (Negative)
[2024-11-12] MEDS: PSEUDOEPHEDRINE HCL 30 MG TABLET PO (14:35)
[2024-11-12] MEDS: KETOROLAC 10 MG TABLET PO (14:35)
[2024-11-12 14:56] VITALS: BP 118/82; PULSE 99; RESP 18; O2SAT 100
== END 2024-11-12 14:58 | disposition home or self-care (01) ==
PROVIDERS: Emergency Provider Student in an Organized Health Care Education/Training Program; PCP Family Medicine
DX: J06.9 Acute upper respiratory infection, unspecified (principal); B34.9 Viral infection, unspecified; Z20.822 Contact with and (suspected) exposure to COVID-19; F41.9 Anxiety disorder, unspecified; F17.200 Nicotine dependence, unspecified, uncomplicated
CPT/HCPCS: 71046; 87637; 87651; 99283; A9270

== ENCOUNTER 2024-11-21 19:09 | Emergency (ER) | payer OTHER, SELFPAY ==
--- NOTE | ~2024-11-21 | XR_ITS ---
CHEST RADIOGRAPH, PA AND LATERAL CLINICAL HISTORY: sob, cough x 1 week . COMPARISON: 11/12/2024 and dating back to 07/14/2023 TECHNIQUE: PA and lateral views of the chest. FINDINGS The cardiomediastinal silhouette is unremarkable. The lungs are clear. IMPRESSION: No focal infiltrate or effusion. If clinical suspicion persists, cross-sectional imaging (noncontrast enhanced CT examination of the c hest) is suggested for further evaluation. Reviewed, dictated and finalized at location A. IMPRESSION: No focal infiltrate or effusion. If clinical suspicion persists, cross-sectional imaging (noncontrast enhanced C T examination of the chest) is suggested for further evaluation.
[2024-11-21 19:11] VITALS: BP 153/90; PULSE 106; RESP 24; TEMP 36.7; O2SAT 99
--- NOTE | 2024-11-21 19:15 | ECG_ITS ---
Test Date: 2024-11-21 19:22:27 Measurements Intervals [place] Rate: 109 P: 70 NM: 143 QRS: 60 QRSD: 85 T: 65 QT: 337 QTc: 456 Interpretive Statements SINUS TACHYCARDIA BASELINE ARTIFACT- II, III, AVF, V4-V6 ABNORMAL ECG Compared to ECG 02/15/2024 17:45:31 HEART RATE HAS INCREASED Electronically Signed On 11-21-2024 19:24:03 CDT by David Salas D.O.
[2024-11-21 19:50] VITALS: O2SAT 100
[2024-11-21 19:55] VITALS: BP 132/94; PULSE 99; RESP 17; O2SAT 99
[2024-11-21 20:09] LABS: Influenza A QL RT-PCR Negative (Negative); Influenza B QL RT-PCR Negative (Negative); RSV RNA, RT-PCR Negative (Negative); SARS-CoV-2 RNA PCR Negative (Negative)
--- NOTE | 2024-11-21 20:42 | ED_ITS ---
HPI - General Adult General Chief complaint: Shortness of Breath/Dyspnea Stated complaint: congestion, cough, SOB Time Seen by Provider: 11/21/24 19:46 History of Present Illness HPI narrative: 39-year-old female presents emergency department for evaluation for 2 and half weeks of cough congestion with associated sputum production. Patient was previously diagnosed with a viral infection but states her symptoms have worsened. Patient is a smoker. Related Data Home Medications ?Medication ?Instructions ?Recorded ?Confirmed ?Last Taken ?Type alprazolam 1 mg tablet mg 07/14/23 Unknown History escitalopram oxalate 10 mg tablet mg 07/14/23 Unknown History sumatriptan succinate 100 mg tablet mg PO 07/14/23 07/14/23 Unknown History Allergies Allergy/AdvReac Type Severity Reaction Status Date / Time iohexol (From contrast - CT, Allergy Swelling Verified 11/12/24 13:48 X-RAY) of Lip/Tongue/Throat Sulfa (Sulfonamide Allergy Swelling Verified 11/12/24 13:48 Antibiotics) of Lip/Tongue/Throat vancomycin Allergy Swelling Verified 11/12/24 13:48 of Lip/Tongue/Throat tylenol 3 Allergy Unknown Other Uncoded 11/12/24 13:48 Review of Systems Review of Systems: All systems reviewed & are unremarkable except as noted in HPI and below PMFSH Past Medical History Medical History History of anxiety Social History Social History Smoking status: Current every day smoker Exam Narrative: APPEARANCE: Ill-appearing HEAD: normocephalic, atraumatic. EYES: PERRLA/EOMI, conjunctivae clear. NOSE: Normal no drainage EARS:TMS clear with good light reflex. THROAT: Pharynx clear, no exudate. NECK: Supple. No adenopathy, no masses. RESPIRATORY: Wheezing respiration CARDIOVASCULAR: Regular rate and rhythm without murmurs rubs or gallops. ABDOMINAL: Soft, nontender, nondistended, normal bowel sounds MUSCULOSKELETAL: Moves all extremities. Strength/ROM intact, No edema, No calf tenderness. NEURO: Alert. Cranial nerves II through XII intact. Good gait. Good coordination SKIN: Warm, dry. Normal Color Course Vital Signs Vital signs: Vital Signs Temperature 98.0 F 11/21/24 19:11 Pulse Rate 106 H 11/21/24 19:11 Respiratory Rate 24 H 11/21/24 19:11 Blood Pressure 153/90 H 11/21/24 19:11 Pulse Oximetry 99 11/21/24 19:11 Temperature 98.0 F 11/21/24 19:11 Pulse Rate 110 H 11/21/24 21:46 Respiratory Rate 21 H 11/21/24 21:46 Blood Pressure 126/85 11/21/24 21:46 Pulse Oximetry 100 11/21/24 21:46 Oxygen Delivery Room Air 11/21/24 19:50 Medical Decision Making MDM Narrative Medical decision making narrative: 39-year-old female present to the emergency department for evaluation for 2 and half weeks of cough congestion with sputum production. Patient is a smoker. Patient was diagnosed with a viral illness few days ago but continues had worsening symptoms. Patient was negative for influenza RSV and for COVID. Chest x-ray showed no acute cardiopulmonary abnormality. Patient did have wheeze on exam and was treated with nebulized albuterol. Patient was started on Augmentin azithromycin for the persistence of her symptoms. Patient was also provided albuterol and Tessalon Perles for symptom control. Patient was encouraged to quit smoking. Differential Diagnosis Differential Diagnosis: COVID, RSV, influenza, pneumonia, COPD, asthma Vital Signs Vital Signs: Vital Signs Temperature 98.0 F 11/21/24 19:11 Pulse Rate 106 H 11/21/24 19:11 Respiratory Rate 24 H 11/21/24 19:11 Blood Pressure 153/90 H 11/21/24 19:11 Pulse Oximetry 99 11/21/24 19:11 Temperature 98.0 F 11/21/24 19:11 Pulse Rate 110 H 11/21/24 21:46 Respiratory Rate 21 H 11/21/24 21:46 Blood Pressure 126/85 11/21/24 21:46 Pulse Oximetry 100 11/21/24 21:46 Oxygen Delivery Room Air 11/21/24 19:50 Lab Data Lab results reviewed: Yes I reviewed the patient's lab results. Labs: Lab Results 11/21/24 Range/Units 19:25 Influenza A (RT-PCR) Negative (Negative) Influenza B (RT-PCR) Negative (Negative) RSV (RT-PCR) Negative (Negative) SARS-CoV-2 RNA (RT-PCR) Negative (Negative) Imaging Data Radiologist's impression: Impressions Chest X-Ray 11/21/24 19:49 IMPRESSION: No focal infiltrate or effusion. If clinical suspicion persists, cross-sectional imaging (noncontrast enhanced CT examination of the chest) is suggested for further evaluation. Discharge Plan Discharge Clinical Impression: Pneumonia Patient Disposition: Home Condition: Stable Instructions: Antibiotic Form, Pneumonia (ED) Additional Instructions: Antibiotic as directed until completed. A be drawn haler for shortness of breath and Tessalon Perles for cough suppression. Have close follow-up with your primary care physician. If you have any worsening symptoms then please call or return to the emergency department Patient Language: Bol[place]ian Prescriptions: New albuterol sulfate 90 mcg/actuation HFA aerosol inhaler 1 puff inhalation QID Qty: 6.7 0RF amoxicillin-pot clavulanate 875-125 mg tablet 1 tablet PO Q12H 7 Days Qty: 14 0RF azithromycin 250 mg tablet See Rx Instructions .ROUTE .COMPLEX Qty: 6 0RF Rx Instructions: For 250 mg dose pack: take 500 mg today (day 1), then 250 mg for 4 days (days 2-5) benzonatate 100 mg capsule 100 mg PO TID PRN (Reason: cough) Qty: 14 0RF No Action prednisone 20 mg tablet 40 mg PO DAILY 4 Days Qty: 8 0RF albuterol sulfate 90 mcg/actuation HFA aerosol inhaler 2 puff inhalation QID PRN (Reason: shortness of breath or wheezing) Qty: 8.5 0RF ondansetron 4 mg tablet,disintegrating 4 mg PO Q8H Qty: 14 0RF alprazolam 1 mg tablet sumatriptan succinate 100 mg tablet PO escitalopram oxalate 10 mg tablet ibuprofen 800 mg tablet 800 mg PO TID PRN (Reason: pain) 7 Days Qty: 21 0RF acetaminophen 500 mg tablet 1,000 mg PO TID PRN (Reason: giles) 7 Days Qty: 42 0RF ondansetron 4 mg tablet,disintegrating 4 mg PO Q8H PRN (Reason: nausea and vomiting) Qty: 30 0RF albuterol sulfate [Ventolin HFA] 90 mcg/actuation HFA aerosol inhaler 2 puff inhalation QID PRN (Reason: shortness of breath or wheezing) Qty: 8.5 0RF ketorolac 10 mg tablet 10 mg PO Q8H PRN (Reason: pain) 5 Days Qty: 20 0RF Rx Instructions: maximum total duration of 5 days from all oral, intranasal, or parenteral formulations ondansetron 4 mg tablet,disintegrating 4 mg PO Q8H PRN (Reason: nausea and vomiting) Qty: 10 0RF pseudoephedrine HCl [Nasal Decongestant (pseudoeph)] 30 mg tablet 30 mg PO Q4-6H PRN (Reason: nasal congestion) Qty: 20 0RF Rx Instructions: DNExceed 4 doses/24h Follow-up/Referrals: Larry,Clotilde Babcock MD [Primary Care Provider] - Stand Alone Forms: Work/School Release IP
[2024-11-21 20:51] VITALS: PULSE 90; RESP 19
[2024-11-21] MEDS: ALBUTEROL SULFATE NEB 2.5 MG/3 ML INH 5 MG INHALATION (20:51)
[2024-11-21] MEDS: AZITHROMYCIN 250 MG TABLET 500 MG PO (21:16)
[2024-11-21] MEDS: AMOXICILLIN/CLAVULANATE K 875-125 MG TAB 1 TABLET PO (21:16)
[2024-11-21] MEDS: BENZONATATE 100 MG CAPSULE PO (21:16)
[2024-11-21 21:46] VITALS: BP 126/85; PULSE 110; RESP 21; O2SAT 100
== END 2024-11-21 21:46 | disposition home or self-care (01) ==
PROVIDERS: Physician Assistant; Emergency Provider Emergency Medicine; PCP Family Medicine
DX: J18.9 Pneumonia, unspecified organism (principal); Z20.822 Contact with and (suspected) exposure to COVID-19; F41.9 Anxiety disorder, unspecified; F17.200 Nicotine dependence, unspecified, uncomplicated
CPT/HCPCS: 71046; 87637; 93005; 94640; 99283; A9270

== ENCOUNTER 2024-11-26 18:28 | Emergency (ER) | payer OTHER, SELFPAY ==
--- NOTE | ~2024-11-26 | CT_ITS ---
EXAMINATION: CT diagnostic chest wo con DATE: 11/26/2024 19:36 INDICATION: persistent right lung pain and cough TECHNIQUE: Computed tomography (CT) of the chest was performed with 100 mL Omnipaque-350 intravenous contrast. Automated exposure control and iterative reconstruction technique were employed. The dose-l ength product was 137.67 mGy-cm. COMPARISON: X-ray chest, same date and 11/21/2024. FINDINGS: CHEST: Thoracic aorta: No significant dilation or calcification. Lung parenchyma and airways: Mild biapical pleural scarring and small right upper lobe air cyst. Scat tered paraseptal air cysts. Patent airways. Thoracic inlet, axillae and chest wall: Subcentimeter thyroid hypodensities, which require no additio nal evaluation at this time. No axillary lymphadenopathy. Mediastinum: No mass or lymphadenopathy. Heart and pericardium: Normal heart size. No pericardial effusion. Coronary artery calcifications: Absent. Pleura: No effusion or mass. Upper abdomen: No significant finding. Thoracic bones: No acute osseous finding in the chest. IMPRESSION: No acute thoracic process detected. Pulmonary findings suggestive of early paraseptal emphysema. Reviewed, dictated and finalized at location K. IMPRESSION: No acute thoracic process detected. Pulmonary findings suggestive of early para septal emphysema.
--- NOTE | ~2024-11-26 | XR_ITS ---
EXAMINATION: XR chest 2V Exam Date/Time: 11/26/2024 18:55 CDT HISTORY: SOB Comparison: 11/21/2024. RESULT: Lines, tubes, and devices: None. Lungs and pleura: Clear. Cardiomediastinal silhouette: Stable. Other: No acute osseous or upper abdominal finding. IMPRESSION: No acute cardiopulmonary process. Reviewed, dictated and finalized at location K.
[2024-11-26 18:33] VITALS: BP 126/85; PULSE 104; RESP 18; TEMP 36.6; O2SAT 98
--- NOTE | 2024-11-26 18:36 | ECG_ITS ---
Test Date: 2024-11-26 18:49:02 Measurements Intervals [place] Rate: 91 P: 62 SC: 157 QRS: 70 QRSD: 82 T: 73 QT: 348 QTc: 430 Interpretive Statements SINUS RHYTHM BASELINE ARTIFACT- I, II, AVR, AVL NORMAL ECG Compared to ECG 11/21/2024 19:22:27 HEART RATE HAS DECREASED Electronically Signed On 11-26-2024 19:53:12 CDT by David Salas D.O.
[2024-11-26 18:55] LABS: Basophils Percent Auto 0.1 % (0.2-1.2); Eosinophils Absolute Auto 0.2 K/mm3 (0-0.3); Eosinophils Percent Auto 1.7 % (0-4.4); Hematocrit 40.4 % (37.0-47.0); Hemoglobin 13.8 g/dL (12.0-15.0); Immature Granulocyte Absolute 0.03 K/mm3 (0.00-0.031); Immature Granulocyte Percent A 0.3 % (0-0.5); Lymphocytes Absolute Auto 3.61 K/mm3 (0.9-3.2); Lymphocytes Percent Auto 33.7 % (18.3-44.2); Mean Corpuscular HGB Conc 34.2 g/dl (32-36); Mean Corpuscular Hemoglobin 30.7 pg (26-34); Monocytes Percent Auto 9.4 % (2.6-8.5); Neutrophils Absolute Auto 5.9 K/mm3 (1.3-6.7); Neutrophils Percent Auto 54.8 % (45.5-73.1); Platelet Count Result 273 k/mm3 (150-375); Red Blood Count 4.49 M/mm3 (4.2-5.4); Red Cell Distribution Width 12.6 % (11.5-14.5); White Blood Count 10.7 K/mm3 (4.5-10.0)
[2024-11-26 19:08] LABS: Alanine Aminotransferase 17 U/L (6-35); Albumin Level 3.7 g/dL (3.5-5.1); Alkaline Phosphatase 55 U/L (38-126); Anion Gap 9 mmol/L (4-12); Aspartate Amino Transferase 26 U/L (14-36); Bilirubin,Total 0.3 mg/dL (0.2-1.3); Blood Urea Nitrogen 9 mg/dL (7-17); Calcium 8.8 mg/dL (8.4-10.2); Carbon Dioxide 22 mmol/L (22-30); Chloride 109 mmol/L (98-107); Estimated CRCL calculation 91 ml/min; Estimated Glomerular Filt Rate > 60; Glucose 100 mg/dL (65-110); Potassium 3.9 mmol/L (3.4-5.0); Sodium 140 mmol/L (137-145); Total Protein 6.7 g/dL (6.3-8.2)
--- NOTE | 2024-11-26 19:27 | ED.SOB ---
HPI - SOB/Dyspnea General Chief Complaint: Shortness of Breath/Dyspnea <Colten Wilson MD - Last Filed: 11/27/24 22:52> Stated Complaint: right side lung pain <Colten Wilson MD - Last Filed: 11/27/24 22:52> Time Seen by Provider: 11/26/24 18:41 <Colten Wilson MD - Last Filed: 11/27/24 22:52> History of Present Illness HPI Narrative: 39-year-old female presenting to the emergency department for repeat evaluation of persisting cough and right-sided chest discomfort. She was evaluated several times over last month for persisting cough and diagnosed with previously a viral infection and now pneumonia being treated with oral antibiotics but still having persistent symptoms and sputum production. Endorses being a smoker but not been smoking since this started as she has pain with deep breathing. Isolated pain to the right side of her chest when she breathes and feels like she broke a rib were bruised rib with all of her coughing. Has tried pseudoephedrine and Mucinex for cough suppressant. No trauma or injury, no history of DVT/PE and no recent surgeries or leg swelling. Was otherwise in her normal state of health. <Colten Wilson MD - Last Filed: 11/27/24 22:52> Related Data Home Medications: Home Medications ?Medication ?Instructions ?Recorded ?Confirmed ?Last Taken ?Type alprazolam 1 mg tablet mg 07/14/23 Unknown History escitalopram oxalate 10 mg tablet mg 07/14/23 Unknown History sumatriptan succinate 100 mg tablet mg PO 07/14/23 07/14/23 Unknown History <Colten Wilson MD - Last Filed: 11/27/24 22:52> Allergies/Adverse Reactions: Allergies Allergy/AdvReac Type Severity Reaction Status Date / Time iohexol (From contrast - CT, Allergy Swelling Verified 11/12/24 13:48 X-RAY) of Lip/Tongue/Throat Sulfa (Sulfonamide Allergy Swelling Verified 11/12/24 13:48 Antibiotics) of Lip/Tongue/Throat vancomycin Allergy Swelling Verified 11/12/24 13:48 of Lip/Tongue/Throat tylenol 3 Allergy Unknown Other Uncoded 11/12/24 13:48 <Colten Wilson MD - Last Filed: 11/27/24 22:52> Review of Systems Review of Systems: As reviewed above in HPI <Colten Wilson MD - Last Filed: 11/27/24 22:52> [facility] Past Medical History Medical History: Medical History History of anxiety <Colten Wilson MD - Last Filed: 11/27/24 22:52> Social History Social History: Social History Smoking status: Current every day smoker <Colten Wilson MD - Last Filed: 11/27/24 22:52> Exam Narrative: GENERAL: Tearful affect but otherwise well-appearing not any acute distress HEAD: [Normocephalic, atraumatic.] EYES: [PERRLA and EOMI.] ENT: Nares clear, no rhinorrhea or epistaxis. Mucous membranes moist. NECK: Supple. CHEST: [Clear to auscultation. No respiratory distress.] Pain is not reproducible with palpation along the chest wall but reproducible with deep breathing. HEART: [Regular rate and rhythm]. No murmur heard. [Normal peripheral pulses.] ABDOMEN: [Soft, nondistended], [nontender], [No rigidity or guarding] EXTREMITIES: Normal range of motion. [No edema.] SKIN: Warm, dry, no rash. NEURO: [No focal deficits]. Alert and oriented [x3.] PSYCH: [Normal mood and affect.] <Colten Wilson MD - Last Filed: 11/27/24 22:52> Course Course Emergency Course: Patient signed out to me pending interpretation of her CT scan. She does have a history of smoking with a chronic cough. Given the chronicity of the cough her resultant symptoms, a cough suppressant Rx had been ordered. Her symptoms were felt to likely be bronchitis but given multiple negative chest x-rays, had proceeded with diagnostic CT after dimer resulted negative. This results as below. Discharged in stable condition. Advised follow up. <Celine Boone MD - Last Filed: 11/26/24 21:04> Vital Signs Vital signs: Vital Signs Temperature 36.6 C 11/26/24 18:33 Pulse Rate 104 H 11/26/24 18:33 Respiratory Rate 18 11/26/24 18:33 Blood Pressure 126/85 11/26/24 18:33 Pulse Oximetry 98 11/26/24 18:33 Oxygen Delivery Room Air 11/26/24 18:33 Temperature 36.6 C 11/26/24 18:33 Pulse Rate 104 H 11/26/24 18:33 Respiratory Rate 18 11/26/24 18:33 Blood Pressure 126/85 11/26/24 18:33 Pulse Oximetry 98 11/26/24 18:33 Oxygen Delivery Room Air 11/26/24 18:33 <Colten Wilson MD - Last Filed: 11/27/24 22:52> Vital Signs Temperature 36.6 C 11/26/24 18:33 Pulse Rate 104 H 11/26/24 18:33 Respiratory Rate 18 11/26/24 18:33 Blood Pressure 126/85 11/26/24 18:33 Pulse Oximetry 98 11/26/24 18:33 Oxygen Delivery Room Air 11/26/24 18:33 Temperature 36.6 C 11/26/24 18:33 Pulse Rate 104 H 11/26/24 18:33 Respiratory Rate 18 11/26/24 18:33 Blood Pressure 126/85 11/26/24 18:33 Pulse Oximetry 98 11/26/24 18:33 Oxygen Delivery Room Air 11/26/24 18:33 <Celine Boone MD - Last Filed: 11/26/24 21:04> MDM - SOB/Dyspnea MDM Narrative Medical decision making narrative: 39-year-old female presenting to the ER for evaluation of persistent cough and right-sided chest discomfort with breathing. She is a smoker but not been smoking for last few weeks. Recently diagnosed with viral infection and then pneumonia and treated with antibiotics and several decongest the medications without any relief of symptoms. Otherwise well-appearing not any acute distress but she is tearful about being in the ER once again. Blood pressure is reassuring, slightly tachycardic pulse of 104, saturates 98%, temperature 36.6? C. considerations presently for pleurisy, bronchitis, pneumonia with worsening despite antibiotics, low suspicion intrathoracic process such as lung contusion, pulmonary embolism as she has had no risk factors and low Wells criteria but this is her 3rd evaluation for this so we will evaluate with a D-dimer given her anaphylactic allergies to contrast medium. Patient comfortable with this plan. Chest x-ray, CBC, CMP, D-dimer, EKG and chest x-ray obtained and she was given cough suppressant medications for symptoms. Dimer is negative ruling out thromboembolic disease with her exceedingly low risk factors at this time. Chest x-ray unremarkable. CT of the thorax without contrast with high-definition views were obtained for further delineation. Patient signed out to oncoming ER physician pending CT diagnostic chest and likely discharge home with symptom controlling medications unless acute findings needing intervention or hospitalization. Patient comfortable with this plan. <Colten Wilson MD - Last Filed: 11/27/24 22:52> Medical Records Attestation: I reviewed the patient's medical records. <Colten Wilson MD - Last Filed: 11/27/24 22:52> Lab Data Attestation: I reviewed the patient's lab results. <Colten Wilson MD - Last Filed: 11/27/24 22:52> Result diagrams: 11/26/24 18:45 11/26/24 18:45 <Colten Wilson MD - Last Filed: 11/27/24 22:52> Labs: Lab Results 11/26/24 Range/Units 18:45 WBC 10.7 H (4.5-10.0) K/mm3 RBC 4.49 (4.2-5.4) M/mm3 Hgb 13.8 (12.0-15.0) g/dL Hct 40.4 (37.0-47.0) % MCV 90.0 (80-100) fl MCH 30.7 (26-34) pg MCHC 34.2 (32-36) g/dl RDW 12.6 (11.5-14.5) % Plt Count 273 (150-375) k/mm3 MPV 10.0 (7.4-10.4) fl Immature Gran % (Auto) 0.3 (0-0.5) % Neut % (Auto) 54.8 (45.5-73.1) % Lymph % (Auto) 33.7 (18.3-44.2) % [place] % (Auto) 9.4 H (2.6-8.5) % Eos % (Auto) 1.7 (0-4.4) % Baso % (Auto) 0.1 L (0.2-1.2) % Lymph # (Auto) 3.61 H (0.9-3.2) K/mm3 [place] # (Auto) 1.0 H (0.1-0.6) K/mm3 Eos # (Auto) 0.2 (0-0.3) K/mm3 Baso # (Auto) 0.0 (0.0-0.1) K/mm3 Abs Immat Gran (auto) 0.03 (0.00-0.031) K/mm3 Absolute Neuts (auto) 5.9 (1.3-6.7) K/mm3 Absolute Nucleated RBC 0.000 (0.0-0.012) K/mm3 Nucleated RBC % 0.0 (0.0-0.2) % D-Dimer 0.30 (<0.48) ug/mL Sodium 140 (137-145) mmol/L Potassium 3.9 (3.4-5.0) mmol/L Chloride 109 H (98-107) mmol/L Carbon Dioxide 22 (22-30) mmol/L Anion Gap 9 (4-12) mmol/L BUN 9 (7-17) mg/dL Creatinine 0.60 L (0.7-1.0) mg/dL Estim Creat Clear Calc 91 ml/min Estimated GFR > 60 (59 - ) Glucose 100 (65-110) mg/dL Calcium 8.8 (8.4-10.2) mg/dL Total Bilirubin 0.3 (0.2-1.3) mg/dL AST 26 (14-36) U/L ALT 17 (6-35) U/L Alkaline Phosphatase 55 (38-126) U/L Total Protein 6.7 (6.3-8.2) g/dL Albumin 3.7 (3.5-5.1) g/dL <Colten Wilson MD - Last Filed: 11/27/24 22:52> Lab Results 06/29/25 Range/Units 18:45 WBC 10.7 H (4.5-10.0) K/mm3 RBC 4.49 (4.2-5.4) M/mm3 Hgb 13.8 (12.0-15.0) g/dL Hct 40.4 (37.0-47.0) % MCV 90.0 (80-100) fl MCH 30.7 (26-34) pg MCHC 34.2 (32-36) g/dl RDW 12.6 (11.5-14.5) % Plt Count 273 (150-375) k/mm3 MPV 10.0 (7.4-10.4) fl Immature Gran % (Auto) 0.3 (0-0.5) % Neut % (Auto) 54.8 (45.5-73.1) % Lymph % (Auto) 33.7 (18.3-44.2) % [place] % (Auto) 9.4 H (2.6-8.5) % Eos % (Auto) 1.7 (0-4.4) % Baso % (Auto) 0.1 L (0.2-1.2) % Lymph # (Auto) 3.61 H (0.9-3.2) K/mm3 [place] # (Auto) 1.0 H (0.1-0.6) K/mm3 Eos # (Auto) 0.2 (0-0.3) K/mm3 Baso # (Auto) 0.0 (0.0-0.1) K/mm3 Abs Immat Gran (auto) 0.03 (0.00-0.031) K/mm3 Absolute Neuts (auto) 5.9 (1.3-6.7) K/mm3 Absolute Nucleated RBC 0.000 (0.0-0.012) K/mm3 Nucleated RBC % 0.0 (0.0-0.2) % D-Dimer 0.30 (<0.48) ug/mL Sodium 140 (137-145) mmol/L Potassium 3.9 (3.4-5.0) mmol/L Chloride 109 H (98-107) mmol/L Carbon Dioxide 22 (22-30) mmol/L Anion Gap 9 (4-12) mmol/L BUN 9 (7-17) mg/dL Creatinine 0.60 L (0.7-1.0) mg/dL Estim Creat Clear Calc 91 ml/min Estimated GFR > 60 (59 - ) Glucose 100 (65-110) mg/dL Calcium 8.8 (8.4-10.2) mg/dL Total Bilirubin 0.3 (0.2-1.3) mg/dL AST 26 (14-36) U/L ALT 17 (6-35) U/L Alkaline Phosphatase 55 (38-126) U/L Total Protein 6.7 (6.3-8.2) g/dL Albumin 3.7 (3.5-5.1) g/dL <Celine Boone MD - Last Filed: 11/26/24 21:04> Imaging Data Attestation: I personally reviewed and interpreted this imaging study as follows: <Colten Wilson MD - Last Filed: 11/27/24 22:52> My impression: Impressions Chest X-Ray 11/26/24 19:05 IMPRESSION: No acute cardiopulmonary process. <Colten Wilson MD - Last Filed: 11/27/24 22:52> Radiologist's impression: Impressions Chest X-Ray 11/26/24 19:05 IMPRESSION: No acute cardiopulmonary process. Chest CT 11/26/24 20:03 IMPRESSION: No acute thoracic process detected. Pulmonary findings suggestive of early paraseptal emphysema. <Celine Boone MD - Last Filed: 11/26/24 21:04> Discharge Plan Discharge Clinical Impression: Chronic cough, Chest pain, pleuritic, Paraseptal emphysema <Colten Wilson MD - Last Filed: 11/27/24 22:52> Patient Disposition: Home <Colten Wilson MD - Last Filed: 11/27/24 22:52> Condition: Stable <Colten Wilson MD - Last Filed: 11/27/24 22:52> Instructions: Antibiotic Form, How to Stop Smoking (ED), Emphysema (DC), Chronic Cough (ED), Noncardiac Chest Pain (ED) <Colten Wilson MD - Last Filed: 11/27/24 22:52> Additional Instructions: Your CT scan did show possibility of possible early paraseptal emphysema. Follow-up with your primary care physician. You have been prescribed a medication that is both for pain relief as well as cough suppressant. Return to the emergency department any new or worsening symptoms. <Colten Wilson MD - Last Filed: 11/27/24 22:52> Patient Language: Occitan <Colten Wilson MD - Last Filed: 11/27/24 22:52> Prescriptions: New acetaminophen-codeine 120 mg-12 mg /5 mL (5 mL) solution 5 ml PO Q8H PRN (Reason: cough) Qty: 200 0RF No Action prednisone 20 mg tablet 40 mg PO DAILY 4 Days Qty: 8 0RF albuterol sulfate 90 mcg/actuation HFA aerosol inhaler 2 puff inhalation QID PRN (Reason: shortness of breath or wheezing) Qty: 8.5 0RF ondansetron 4 mg tablet,disintegrating 4 mg PO Q8H Qty: 14 0RF alprazolam 1 mg tablet sumatriptan succinate 100 mg tablet PO escitalopram oxalate 10 mg tablet ibuprofen 800 mg tablet 800 mg PO TID PRN (Reason: pain) 7 Days Qty: 21 0RF acetaminophen 500 mg tablet 1,000 mg PO TID PRN (Reason: giles) 7 Days Qty: 42 0RF ondansetron 4 mg tablet,disintegrating 4 mg PO Q8H PRN (Reason: nausea and vomiting) Qty: 30 0RF albuterol sulfate [Ventolin HFA] 90 mcg/actuation HFA aerosol inhaler 2 puff inhalation QID PRN (Reason: shortness of breath or wheezing) Qty: 8.5 0RF ketorolac 10 mg tablet 10 mg PO Q8H PRN (Reason: pain) 5 Days Qty: 20 0RF Rx Instructions: maximum total duration of 5 days from all oral, intranasal, or parenteral formulations ondansetron 4 mg tablet,disintegrating 4 mg PO Q8H PRN (Reason: nausea and vomiting) Qty: 10 0RF pseudoephedrine HCl [Nasal Decongestant (pseudoeph)] 30 mg tablet 30 mg PO Q4-6H PRN (Reason: nasal congestion) Qty: 20 0RF Rx Instructions: DNExceed 4 doses/24h albuterol sulfate 90 mcg/actuation HFA aerosol inhaler 1 puff inhalation QID Qty: 6.7 0RF amoxicillin-pot clavulanate 875-125 mg tablet 1 tablet PO Q12H 7 Days Qty: 14 0RF azithromycin 250 mg tablet See Rx Instructions .ROUTE .COMPLEX Qty: 6 0RF Rx Instructions: For 250 mg dose pack: take 500 mg today (day 1), then 250 mg for 4 days (days 2-5) benzonatate 100 mg capsule 100 mg PO TID PRN (Reason: cough) Qty: 14 0RF <Colten Wilson MD - Last Filed: 11/27/24 22:52> Follow-up/Referrals: Larry,Clotilde Babcock MD [Primary Care Provider] - <Colten Wilson MD - Last Filed: 11/27/24 22:52> Stand Alone Forms: Work/School Release IP <Colten Wilson MD - Last Filed: 11/27/24 22:52> Time of Disposition: 20:07 <Colten Wilson MD - Last Filed: 11/27/24 22:52> 20:07 <Celine Boone MD - Last Filed: 11/26/24 21:04>
[2024-11-26] MEDS: ACETAMINOPHEN/CODEINE ELIXIR (*CRX) 120-12 MG/5 ML UDC PO (20:29)
== END 2024-11-26 20:54 | disposition home or self-care (01) ==
PROVIDERS: Student in an Organized Health Care Education/Training Program; Emergency Provider Student in an Organized Health Care Education/Training Program; PCP Family Medicine
DX: R05.3 Chronic cough (principal); J43.9 Emphysema, unspecified; R07.81 Pleurodynia; F17.200 Nicotine dependence, unspecified, uncomplicated
CPT/HCPCS: 36415; 71046; 71250; 80053; 85025; 85380; 93005; 99284; A9270

== ENCOUNTER 2025-03-20 16:02 | Outpatient (CLI) | payer OTHER, SELFPAY ==
--- NOTE | ~2025-03-20 | XR_ITS ---
XR chest 2V HOSTORY: lower respiratory infection/COUGH/SOB/FEVER/CP COMPARISON:[ None] FINDINGS: Frontal and lateral views of the chest were obtained. The lungs are clear. The heart size is normal in size. Pulmonary vasculature is unremarkable. Osseous structures are intact. IMPRESSION: No acute lung findings.] [ ] Reviewed, dictated and finalized at location S.
--- OUTSIDE RECORDS SUMMARY | 2025-03-20 19:44 | XMS_ITS | Clinical Summary ---
Author Organization [facility] Address [address] [place] [address] Care Team Providers Care School Bus Aide Name Role Phone Vitaliy Cowan MD Primary Care Provider [phone] Source Comments [facility],non-[facility] Affiliates and Associated Physician Practices is amultiple site organization consisting of ambulatory clinics and hospital sitesin [place], [place], [place] and [place]. This disclosure is being madepursuant to the Care Everywhere program and may not contain all information available regarding this patient. 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 Gender Identity Not on file Sexual Orientation Not on file Plan of Treatment Health Maintenance Due Date Last Done Comments LIPID TESTING 1983 MAMMOGRAM 1983 HIV SCREENING 11/04/1998 HEPATITIS C SCREENING 10/31/2001 DTAP/TDAP/TD VACCINES (1 - Tdap) 11/04/2002 HEPATITIS B VACCINE (1 of 3 - 19+ 3-dose series) 11/04/2002 HPV VACCINE (1 - 3-dose SCDM series) 11/04/2010 DEPRESSION SCREENING 05/31/2024 COVID-19 VACCINE (2023-2 5 season) 2025 INFLUENZA VACCINE (#1) 2025 ZOSTER VACCINE (1 of 2) 11/04/2033 HIB VACCINE Aged Out No longer eligi ble based on patient's age to complete this topic MENINGOCOCCAL (Group B) VACC INE SHARED DECISION-MAKING Aged Out No longer eligibl e based on patient's age to complete this topic MENINGOCOCCAL GROUPS A/C/Y/W VACCINE Aged Out No longer eligible b ased on patient's age to complete this topic PNEUMOCOCCAL VACCINE Aged Out No long er eligible based on patient's age to complete this topic Insurance Care Teams School Bus Aide Relationship Specialty Start Date End Date Vitaliy Cowan MD [address] [facility] [place] [id number] PCP - General 11/22/20
--- OUTSIDE RECORDS SUMMARY | 2025-03-20 19:44 | XMS_ITS | Clinical Summary ---
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 on file Not on file Not [...] 7:03 PM CDT Height 162.6 cm (5' 4) 02/06/2023 7:03 PM CDT Body Mass Index 23.99 02/06/2023 7:03 PM CDT Plan of Treatment Health Maintenance Due Date Last Done Comments Depression Screening 1985 Hepatitis C Screening 1985 Varicella Vaccines (1 of 2 - 13+ 2-dose series) 11/04/1996 Hepatitis B Screening 11/04/2001 Regular Well Visit/Exam 18-64 11/04/2001 Pneumococcal vaccine <65 (1 of 2 - PCV) 11/04/2002 HPV Vaccines (1 - 3-dose SCDM series) 11/04/2010 Breast Cancer Screening-Mammogram 01/05/2023 022 Covid-19 Vaccine ( - season) 2025, 06/05/2020 Influenza Vaccine (#1) 2025 03/15/2021, 2019 DTaP/Tdap/Td Vaccine (2 - Td or Tdap) 01/28/2031 Procedures Procedure Name Priority Date/Time Associated Diagnosis [...] Madi Diop M.D. 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
--- OUTSIDE RECORDS SUMMARY | 2025-03-20 19:44 | XMS_ITS | Clinical Summary ---
Author Organization [facility] Address [address] [place] [address] Care Team Providers Care Marine Photographer Name Role Phone Clotilde Juarez MD Primary Care Provider [phone] Allergies Active Allergy Reactions Criticality Noted Date [...] Diabetes Mother Heart Disease Mother Hypertension Mother RI Mother Stroke Mother Depression Sister Lupus Sister [...] 2:10 PM CDT Height 162.6 cm (5' 4) 03/29/2023 2:10 PM CDT Body Mass Index 24.37 03/29/2023 2:10 PM CDT Plan of Treatment Health Maintenance Due Date Last Done Comments Annual Physical 11/04/1986 Hepatitis C 11/04/2001 DTaP, Tdap and Td Vaccines ( 1 - Tdap) 11/04/2002 Hepatitis B Vaccines (1 of 3 - 19+ 3-dose series) 11/04/2002 Pneumococcal Vaccine: Pediatrics (0 to 5 Years) and At-Risk Patients (6 to 49 Years) (1 of 2 - PCV) 11/04/2002 HPV Vaccines (1 - 3-dose SCD M series) 11/04/2010 Mammogram Screening 2023 COVID-19 Vaccine (3 - 2024-2 6 season) 2025 06/26/2020, 06/05/2020 Influenza Adult (#1) 2025 Hepatitis A Vaccines Aged Out No long er eligible based [...] patient's age to complete this topic Insurance [place] [employer] Care Teams Marine Photographer Relationship Specialty Start Date End Date Clotilde Juarez MD [address] [place] [address] PCP - General FAMILY PRACTICE 03/08/23
== END 2025-03-20 16:03 | disposition home or self-care (01) ==
PROVIDERS: PCP Family Medicine
DX: J22 Unspecified acute lower respiratory infection (principal)
CPT/HCPCS: 71046